=== PATIENT | female | born 2000 | race Two or more races ===

== ENCOUNTER 2024-10-14 16:31 | Emergency (ER) | payer MEDICAID, OTHER ==
[~2024-10-14] VITALS: Ht 170.2 cm; Wt 66.0 kg
--- NOTE | 2024-10-14 17:35 | ED.PDOC ---
General HPI Comments 23 y/o F, presents to the ED for CC of pelvic pain. Patient states, she has been experiencing pelvic pain x x1week with new associated symptoms of suprapubic abdominal pain and urinary urgency x4days. Patient reports, additional c/o right-mouth pain and right-ear ringing [id number]; endorses currently being on antibiotics d/t caries. Patient denies dysuria, hematuria, vaginal discharge, or itchiness. No other symptoms or modifying factors are present at this time. Chief Complaint: Pelvic Pain Time Seen by MD: 17:15 Reviewed notes: Nurses Notes, Medications, Allergies Allergies: Coded Allergies: NO KNOWN ALLERGIES (Unverified , 10/14/24) Information Source: Patient Mode of Arrival: Ambulatory Severity: Moderate Inability to void: None Timing: Weeks Duration: Since onset Prehospital treatment: None Onset: Spontaneous Symptoms: Urgency History of: None Location: Suprapubic Modifying factors: None associated signs and symptoms: Abdominal Pain, Urgency Past Medical History PAST MEDICAL HISTORY: Denies Surgical History: Denies all surgeries INCIDENT RESPONSE LEAD History: Denies all INCIDENT RESPONSE LEAD Hx Family History Family History: Unknown Social History Smoker: Non-Smoker Alcohol: Denies ETOH Use Drugs: Denies Drug Use Lives In: Home Constitutional: denies: chills, diaphoresis, fatigue, fever, malaise, sweats, weakness, others EENTM: denies: blurred vision, double vision, ear bleeding, ear discharge, ear drainage, ear pain, ear ringing, eye pain, eye redness, hearing loss, mouth pain, mouth swelling, nasal discharge, nose bleeding, nose congestion, nose pain, photophobia, tearing, throat pain, throat swelling, voice changes, others Respiratory: denies: cough, hemoptysis, orthopnea, SOB at rest, shortness of breath, SOB with excertion, stridor, wheezing, others Cardiovascular: denies: chest pain, dizzy spells, diaphoresis, Dyspnea on exertion, edema, irregular heart beat, left arm pain, lightheadedness, palpitations, PND, syncope, others Gastrointestinal: reports: abdominal pain (suprapubic); denies: abdomen distended, blood streaked bowels, constipated, diarrhea, dysphagia, difficulty swallowing, hematemesis, melena, nausea, poor appetite, poor fluid intake, rectal bleeding, rectal pain, vomiting, others Genitourinary: reports: urgency; denies: abnormal vagina bleeding, burning, dyspareunia, dysuria, flank pain, frequency, hematuria, incontinence, pain, , vagina discharge, others Neurological: denies: dizziness, fainting, headache, left sided numbness, left sided weakness, numbness, paresthesia, pre-existing deficit, right sided numbness, right sided weakness, seizure, speech problems, tingling, tremors, weakness, others Musculoskeletal: denies: back pain, gout, joint pain, joint swelling, muscle pain, muscle stiffness, neck pain, others Integumetry: denies: bruises, change in color, change in hair/nails, dryness, laceration, lesions, lumps, rash, wounds, others Allergic/Immunocompromised: denies: Difficulty Healing, Frequent Infections, Hives, Itching, others Hematologic/Lymphatic: denies: anemia, blood clots, easy bleeding, easy bruising, swollen glands, others Endocrine: denies: excessive hunger, excessive sweating, excessive thirst, excessive urination, flushing, intolerance to cold, intolerance to heat, unexplained weight gain, unexplained weight loss, others Psychiatric: denies: anxiety, bipolar disorder, depression, hopeless, panic disorder, schizophrenia, sleepless, suicidal, others All Other Systems: Reviewed and Negative Physical Exam General Appearance: No Apparent Distress, Normal HEENT: Normal ENT Inspection, Pharynx Normal Neck: Full Range of Motion, Non-Tender, Normal, Normal Inspection Respiratory: Chest Non-Tender, Lungs Clear, No Accessory Muscle Use, No Respiratory Distress, Normal Breath Sounds Cardiovascular: No Edema, No Murmur, No Gallop, Normal Peripheral Pulses, Regular Rate/Rhythm Breast Exam: Deferred Gastrointestinal: No Organomegaly, No Pulsatile Mass, Normal Bowel Sounds, Suprapubic, Tenderness Genitalia: Deferred Pelvic: Deferred Rectal: Deferred Extremities: No calf tenderness, Normal capillary refill, Normal inspection, Normal range of motion, Non-tender, No pedal edema Musculoskeletal : Apperance: Normal Neurologic: Alert, call taker II-XII nml as Tested, No Motor Deficits, Normal Affect, Normal Mood, No Sensory Deficits Cerebellar Function: Normal Reflexes: Normal Skin: Dry, Normal Color, Warm Lymphatic: No Adenopathy Was a procedure done? Was a procedure done?: No Differential Diagnosis Kidney stone (Female): Pyelonephritis, Urolithiasis Kidney stone (Male): N/A Penile/Scrotal: N/A Urinary Problem (Male): N/A Urinary Problem (Female): UTI X-Ray, Labs, Meds, VS Vital Signs Date Time Temp Pulse Resp B/P (MAP) Pulse Ox O2 Delivery O2 Flow Rate FiO2 10/14/24 16:33 98.5 103 16 162/89 97 98.5 Lab Test 10/14/24 18:38 10/14/24 17:20 Range/Units White Blood Count 8.6 4.4-10.8 10^3/uL Red Blood Count 4.83 4.0-5.20 10^6/uL Hemoglobin 14.3 12.2-16.2 g/dL Hematocrit 42.4 36.0-46.0 % Mean Corpuscular Volume 87.7 80.0-100.0 fL Mean Corpuscular Hemoglobin 29.6 28.0-32.0 pg Mean Corpuscular Hemoglobin Concent 33.8 32.0-36.0 g/dL Red Cell Distribution Width 14.5 H 11.8-14.3 % Platelet Count 297 140-450 10^3/uL Mean Platelet Volume 9.5 6.9-10.8 fL Neutrophils (%) (Auto) 65.2 37.0-80.0 % Lymphocytes (%) (Auto) 26.8 10.0-50.0 % Monocytes (%) (Auto) 7.0 0.0-12.0 % Eosinophils (%) (Auto) 0.7 0.0-7.0 % Basophils (%) (Auto) 0.3 0.0-2.0 % Neutrophils # (Auto) 5.6 1.6-8.6 10 ^3/uL Lymphocytes # (Auto) 2.3 0.4-5.4 10 ^3/uL Monocytes # (Auto) 0.6 0-1.3 10 ^3/uL Eosinophils # (Auto) 0.1 0-0.8 10 ^3/uL Basophils # (Auto) 0 0-0.2 10 ^3/uL Nucleated Red Blood Cells 0.2 % Sodium Level 137 136-145 mmol/L Potassium Level 4.5 3.5-5.1 mmol/L Chloride Level 103 98-107 mmol/L Carbon Dioxide Level 26 20-31 mmol/L Anion Gap Pending Blood Urea Nitrogen 10 9-23 mg/dL Creatinine 0.84 0.550-1.02 mg/dL Glomerular Filtration Rate Calc 99 >90 mL/min BUN/Creatinine Ratio 11.9 10.0-20.0 Serum Glucose 88 74-106 mg/dL Calcium Level 9.2 8.7-10.4 mg/dL Lipase Pending Urine Color Light-yellow Yellow Urine Clarity Turbid H Clear Urine pH 7.0 5.0-9.0 Urine Specific [place] 1.018 1.001-1.035 Urine Protein Negative Negative Urine Ketones Negative Negative Urine Blood Trace H Negative /uL Urine Nitrite Negative Negative Urine Bilirubin Negative Negative Urine Urobilinogen Normal Negative mg/dL Urine Leukocyte Esterase Negative Negative /uL Urine RBC 1 0 - 4 /hpf Urine Microscopic WBC 4 0-5 /HPF Urine Squamous Epithelial Cells Mod <5 /hpf Urine Bacteria None seen None Seen /hpf Urine Glucose Normal Normal mg/dL Urine Test Negative Negative X-Ray, Labs, Meds, VS Comment Imaging was reviewed by this provider, there is no obvious pathological or acute disease process. Pending radiology review Labs were reviewed by this provider, no abnormalities Vital signs reviewed by this provider, clinically stable Time of 1ST Reevaluation: 17:45 Reevaluation 1ST: Unchanged Patient Education/Counseling: Diagnosis, Treatment, Need For Follow Up (If symptoms worsen over the next 4-6 hours return to this emergency department. Follow up with PCP in the next24 hours. Symptoms have not improved in the next24 hours return to this emergency room.) Family Education/Counseling: No Family Present SEPSIS Sepsis Screen Date sepsis recognized/suspect: Oct 14, 2024 Time Sepsis recognized/suspect: 163 Recent Procedure: No On Antibiotic Therapy: No Respiratory Rate >20: No Heart Rate >90: Yes Temp<36 C (96.8 F) or >38.3 C: No SBP <90 or MAP <65 mmHG: No New Acute Mental Status Change: No Is the patient on CPAP, BIPAP,: No Physician Orders Basic Metabolic Panel (10/14/24 18:30) Lipase (10/14/24 18:30) Pelvic (10/14/24 18:30) Transvaginal Us Non Ob (10/14/24 ) Vital Signs Date Time Temp Pulse Resp B/P (MAP) Pulse Ox O2 Delivery O2 Flow Rate FiO2 10/14/24 16:33 98.5 103 16 162/89 97 98.5 Laboratory Tests Test 10/14/24 18:38 White Blood Count 8.6 10^3/uL (4.4-10.8) Departure 1 Departure Time of Disposition: 19:40 Impression: Primary Impression: Urinary tract infection Qualified Codes: N30.00 - Acute cystitis without hematuria Additional Impression: Pain, dental Disposition: HOME / SELF CARE / HOMELESS Condition: Fair e-Prescriptions Ibuprofen Micronized (Ibuprofen) 800 Mg Tab 800 MG PO TID PRN, #30 TAB Prov: INGRIS PÉREZ 10/14/24 Amoxicillin & Pot Clavulanate (AUGMENTIN TABLET) 875 Mg Tb 875 MG PO BID for 7 Days, #14 TAB Prov: INGRIS PÉREZ 10/14/24 Discharged With: Self Critical Care Note Critical Care Time?: No Stability Stability form required: No Heart Score Heart Score: Heart Score Response (Comments) Value History N/A 0 EKG N/A 0 Age N/A 0 Risk Factors N/A 0 Troponin N/A 0 Total 0 I personally scribed for INGRIS PÉREZ ([email or web address]) on 10/14/24 at 17:35. Electronically submitted by Annita Cazares ([email or web address]). INGRIS PÉREZ Oct 14, 2024 17:35
[2024-10-14 17:53] LABS: Urine Protein, UAD Negative (Negative)
[2024-10-14 18:49] LABS: Hematocrit 42.4 % (36.0-46.0); Hemoglobin 14.3 g/dL (12.2-16.2); Mean Corpuscular Hemoglobin 29.6 pg (28.0-32.0); Mean Corpuscular Volume 87.7 fL (80.0-100.0); Nucleated Red Blood Cells % 0.2 %
[2024-10-14 18:59] LABS: Chloride 103 mmol/L (98-107); Potassium 4.5 mmol/L (3.5-5.1)
[2024-10-14 19:00] LABS: Calcium 9.2 mg/dL (8.7-10.4); Carbon Dioxide 26 mmol/L (20-31)
[2024-10-14 19:05] LABS: BUN/Creatinine Ratio 11.9 (10.0-20.0); Blood Urea Nitrogen 10 mg/dL (9-23); Glucose 88 mg/dL (74-106)
--- NOTE | 2024-10-14 19:36 | DVH ---
CLINICAL HISTORY: PELVIC PAIN TECHNIQUE: Ultrasound examination of the female pelvis was performed transabdominal. Transvaginal ult rasound was performed to more optimally assess the endometrial cavity. COMPARISON: None FINDINGS: TRANSABDOMINAL IMAGING: The bladder is grossly unremarkable. Endovaginal imaging was thereafter performed for better depictio n of the anatomy. ENDOVAGINAL IMAGING: The uterus measures 7.6 X 3.3 X 5.0 CM. The myometrial echotexture is homogenous. No focal myometria l abnormality is seen. The endometrial lining is normal in thickness, measuring 6 mm. The right ovary measures 3.0 X 1.5 X 2.5 cm. There is a complex 1.7 cm follicle, likely corpus luteal . The left ovary measures 2.0 X 1.4 X 2.1 cm. Normal color doppler flow and vascular waveforms. There is there is a small on a nonspecific free fluid in the cul-de-sac. IMPRESSION: NO SIGNIFICANT SONOGRAPHIC ABNORMALITY OF THE PELVIS.
[2024-10-14 19:37] LABS: Lipase 46 U/L (12-53)
[2024-10-14 19:42] LABS: Anion Gap 8 (5-15); Sodium 137 mmol/L (136-145)
[2024-10-14] MEDS ORDERED: AUG875T PO (19:42)
[2024-10-14] MEDS ORDERED: IBUP-1455 PO (19:42)
[2024-10-14 19:55] VITALS: BP 144/82; PULSE 86; RESP 16; TEMP 98.2; O2SAT 97
== END 2024-10-14 20:01 | disposition home or self-care (01) ==
LOC: ER 16:31
DX: N39.0 Urinary tract infection, site not specified (principal); K08.89 Other specified disorders of teeth and supporting structures
CPT/HCPCS: 36415; 76830; 76856; 80048; 81001; 81025; 83690; 85025